=== PATIENT | male | born 1965 | race African-American/Black ===

== ENCOUNTER 2017-08-09 00:19 | Inpatient (IN) | payer OTHER ==
[~2017-08-09] VITALS: Ht 172.7 cm; Wt 115.7 kg
[2017-08-09 00:20] VITALS: BP 146/74
[2017-08-09] MEDS ORDERED: LISINOPRIL20 MG PO (00:25)
[2017-08-09] MEDS ORDERED: HYDROCHLOROTH12.5 M1 PO (00:25)
[2017-08-09] MEDS ORDERED: METFORMIN HCL500 MG PO (00:25)
[2017-08-09 01:14] LABS: CALCIUM 8.8 mg/dL (8.5-10.1); CREATININE 1.6 mg/dL (0.6-1.3); POTASSIUM 3.7 mmol/L (3.5-5.1)
[2017-08-09 01:18] LABS: ALBUMIN 2.4 g/dL (3.4-5.0); TOTAL BILIRUBIN 0.4 mg/dL (<0.1-1.0); TOTAL PROTEIN 7.2 g/dL (6.4-8.2)
[2017-08-09 01:28] LABS: ABSOLUTE BASOPHILS 0.1 thou/uL (0.0-0.2); ABSOLUTE EOSINOPHILS 0.3 thou/uL (0.0-0.7); ABSOLUTE LYMPHOCYTES 2.5 thou/uL (0.8-5.3); ABSOLUTE MONOCYTES 1.3 thou/uL (0.0-1.2); ABSOLUTE NEUTROPHILS 8.3 thou/uL (1.6-8.1); BASOPHILS 0.9 %; EOSINOPHILS 2.8 %; HEMATOCRIT 37.7 % (42.0-52.0); HEMOGLOBIN 13.1 gm/dL (14.0-18.0); LYMPHOCYTES 19.8 %; MCHC 34.6 g/dL (28.0-37.0); MCV 83.7 fL (80.0-100.0); MONOCYTES 10.3 %; MPV 9.2 fl. (7.2-11.1); NUCLEATED RBCS 0 /100WBC; PLATELET COUNT* 364 thou/uL (150-400); POLYS 66.2 %; RBC 4.51 mil/uL (4.50-6.00); RDW-CV 13.2 % (10.5-14.5); WBC 12.6 thou/uL (4.0-11.0)
[2017-08-09 01:41] VITALS: BP 144/90
--- NOTE | 2017-08-09 02:52 | NUR ---
PATIENT ARRIVE DON UNIT AT 0150. ALERT AND ORIENTED IMES FOUR. REFER TO FELLING BUCKING SUPERVISOR ASSESSMENT. VITAL SIGNS OBTAINED, HTN, NOTED HISTORY OF. PICTURE OOBAINED OF LEFT BUTTOCK, PLACED IN CART. ALL QUESTIONS ANSWERED. PATIENT VERBALIZED UNDERSTANDING O ADMISSIN AND TREATMENT PLAN. WILL CONTINUE TO MONITOR
[2017-08-09 08:15] VITALS: BP 107/76
--- NOTE | 2017-08-09 08:53 | NUR ---
Took pt into care at 0730. pt had morphine before shift change and was effective. Assessment completed. VSS. No c/o pain at this time. NPO at this time. Pt eager to have wound healed and to stop draining. Working with keeping pt dignity. Will continue with plan of care.
--- NOTE | 2017-08-09 10:12 | NUR ---
CM ASSESSMENT: Pt is A&O. Resides at home with his in [place]. 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 No DME. No hx of HH or SNF. Admitted for right buttock abcess. Following for dc needs.
[2017-08-09 12:00] VITALS: BP 129/69
--- NOTE | 2017-08-09 15:33 | NUR ---
ASSUMED CARE OF PATIENT AFTER TRANSFER FROM TELEMETRY AT APPROXIMATELY 1440. ALERT AND ORIENTED X4. AGREE WITH PREVIOUS NURSES ASSESSMENT. VSS ON ROOM AIR. PATIENT HAS NO COMPLAINTS OF PAIN AT THIS TIME. IV IN THE LEFT HAND HAD CLOTTED OFF SO A NEW LINE WAS STARTED IN THE LEFT FOREARM, FLUSING AND FLUIDS INFUSING ORDERED. PATIENT RESTING COMFORTABLY IN BED AT THIS TIME. CALL LIGHT IS WITHIN REACH. NURSING WILL CONTINUE TO MONITOR.
--- NOTE | 2017-08-09 18:00 | NUR ---
PATIENT REMAINS ALERT AND ORIENTED X4. VITALS REMAIN STABLE ON ROOM AIR. PATIENTS LEFT HAND IV INFILTRATED AND A NEW LINE WAS STARTED IN THE LEFT FOREARM, THIS IV ALSO INFILTRATED AND A NEW ACCESS WILL BE STARTED BEFORE SHIFT CHANGE. FLUIDS AND ANTIBIOTICS INFUSED ORDERED. PATIENTS PAIN HAS BEEN MANAGED WITH MEDICATION. HOURLY ROUNDS MAINTAINED. CALL LIGHT WITHIN REACH. NURSING WILL CONTINUE TO MONITOR.
[2017-08-09 20:45] VITALS: BP 109/67
--- NOTE | 2017-08-09 21:11 | NUR ---
RE: VANCOMYCIN DOSING. INFECTIOUS DISEASE PHYSICIAN ORDERING VANCOMYCIN. PHARMACY WILL DEFER & SIGN OFF VANCOMYCIN DOSING. THANK YOU.
[2017-08-10 02:07] LABS: GLYCOHEMOGLOBIN (HGB A1C) 11.6 % (4.8-5.6)
[2017-08-10 04:17] VITALS: BP 121/70
[2017-08-10 04:33] LABS: ABSOLUTE BASOPHILS 0.1 thou/uL (0.0-0.2); ABSOLUTE EOSINOPHILS 0.5 thou/uL (0.0-0.7); ABSOLUTE LYMPHOCYTES 3.3 thou/uL (0.8-5.3); ABSOLUTE MONOCYTES 0.8 thou/uL (0.0-1.2); ABSOLUTE NEUTROPHILS 5.7 thou/uL (1.6-8.1); BASOPHILS 1.2 %; EOSINOPHILS 4.4 %; LYMPHOCYTES 31.5 %; MCH 28.2 pg (26.0-34.0); MCHC 33.3 g/dL (28.0-37.0); MCV 84.9 fL (80.0-100.0); MPV 8.6 fl. (7.2-11.1); NUCLEATED RBCS 0 /100WBC; PLATELET COUNT* 363 thou/uL (150-400); POLYS 54.9 %; RBC 4.24 mil/uL (4.50-6.00); RDW-CV 13.2 % (10.5-14.5); WBC 10.4 thou/uL (4.0-11.0)
[2017-08-10 04:39] LABS: CALCIUM 7.9 mg/dL (8.5-10.1); CREATININE 1.2 mg/dL (0.6-1.3); POTASSIUM 4.5 mmol/L (3.5-5.1)
--- NOTE | 2017-08-10 07:43 | NUR ---
Alert and oriented x 4. He is up in the room independently. Left buttocks abscess is draining sersangunous drainage. Dressing was changed. He had pain meds x 2 this shift. He's had nothing by mouth since midnight in case he might have anything done today.
[2017-08-10 08:00] VITALS: BP 134/87
--- NOTE | 2017-08-10 16:18 | NUR ---
WOUND CARE NOTE: CONSULT RECEIVED TO ASSIST WITH EDUCATION OF WOUND CARE. PATIENT PRESENTS WITH AN ABSCESS TO THE LEFT GLUTEAL REGION, MIDLINE. THERE ARE ACTUALLY 2 OPENINGS. DISTAL GLUTEAL CLEFT: 2X1X0.2. MOIST, YELLOW WOUND BED. FULL THICKNESS. CLEANSED WITH WOUND CLEANSER AND APPLIED GAUZE OVER. LEFT GLUTEAL REGION, MIDLINE: 1.5X0.6X4. INDURATION NOTED TO JOHNNA-WOUND, NO HEAT NOTED. WOUND IS DRAINING MODERATE AMOUNTS OF SANGUINEOUS/PURULENT DRAINAGE. WOUND WAS CLEANSED WITH WOUND CLEANSER. APPLIED IODOFORM 1/4" RIBBON GAUZE. COVERED WITH 4X4 AND SECURED WITH TAPE. EDUCATED PATIENT ON IMPORTANCE OF NUTRITION FOR WOUND HEALING, COMMUNICATED UNDERSTANDING. EDUCATED ON KEEPING OFF AREA TO PROMOTE HEALING, COMMUNICATED UNDERSTANDING. EDUCATED ON PACKING WOUND TO KEEP IT OPEN AND DRAINING, COMMUNICATED UNDERSTANDING. EDUCATED ON KEEPING BLOOD SUGARS WELL CONTROLLED TO PROMOTE HEALING, COMMUNICATED UNDERSTANDING. EDUCATED ON NOT TAKING TUB BATHS/ GETTING INTO POOLS, COMMUNICATED UNDERSTANDING. EDUCATED ON WASHING HANDS PRIOR TO DRESSING CHANGES, COMMUNICATED UNDERSTANDING. RECOMMEND KEEP OFF WOUND-WAFFLE CUSHION TIGHT BLOOD GLUCOSE CONTROL ENCOURAGE GOOD NUTRITION AND HYDRATION FOR WOUND HEALING NURSING TO EDUCATE STAFF ON DRESSING CHANGES TO PROMOTE ABILITY TO PERFORM HIMSELF. PATIENT WILLING TO ATTEMPT TO CHANGE DRESSINGS. IT MAY BE DIFFICULT DUE TO LOCATION AND PAIN. PATIENT STATES HE 'WILL FIGURE SOMETHING OUT' REGARDING DRESSING CHANGES.
[2017-08-10 16:26] VITALS: BP 129/75
--- NOTE | 2017-08-10 16:37 | NUR ---
UNABLE TO SEE PT.THIS AFTERNOON. WOUND CARE NURSE IN ROOM. WILL SEE IN AM
--- NOTE | 2017-08-10 21:14 | NUR ---
I ASSUMED CARE OF THE PATIENT AT 0700. HE IS ALERT AND ORIENTED X4 AND IS PLEASANT. BED IS IN THE LOW LOCKED POSITION AND CALL LIGHT IS IN REACH. HOURLY ROUNDING WAS COMPLETED AND PATIENT NEEDS WERE MET. PAIN IS MANAGED BUT HIGH WITH PRN MEDS. FLUIDS ARE INFUSING. PROTEIN HAS BEEN ADDED TO THE DIET. HE IS UP AD HAYDEE AND STEADY ON HIS FEET. DIETARY VISITED AND DID EDUCATION. EDUCATION WAS ALSO GIVEN ABOUT A1C BEING 11. BRANT WITH WOUND CARE CHANGED HIS DRESSING AND DISCUSSED HIM DOING IT ON HIS OWN PRIOR TO D/C. HE MAY BENEFIT FROM A WAFFLE CUSHION PRIOR TO D/C. NEW ORDERS FOR MRSA SWAB WERE OBTAINED AND ISOLATION CART WAS REQUESTED. HE TOOK A SHOWER TODAY WITH ONLY SETUP ASSISTANCE. WILL CONTINUE TO MONITOR.
[2017-08-10 22:30] VITALS: BP 144/91
[2017-08-11 04:03] LABS: ABSOLUTE BASOPHILS 0.1 thou/uL (0.0-0.2); ABSOLUTE EOSINOPHILS 0.4 thou/uL (0.0-0.7); ABSOLUTE LYMPHOCYTES 3.2 thou/uL (0.8-5.3); ABSOLUTE MONOCYTES 0.8 thou/uL (0.0-1.2); BASOPHILS 1.2 %; EOSINOPHILS 3.9 %; HEMATOCRIT 34.5 % (42.0-52.0); HEMOGLOBIN 11.5 gm/dL (14.0-18.0); LYMPHOCYTES 27.4 %; MCH 28.3 pg (26.0-34.0); MCHC 33.4 g/dL (28.0-37.0); MCV 84.7 fL (80.0-100.0); MONOCYTES 6.8 %; MPV 8.5 fl. (7.2-11.1); NUCLEATED RBCS 0 /100WBC; PLATELET COUNT* 385 thou/uL (150-400); POLYS 60.7 %; RBC 4.08 mil/uL (4.50-6.00); RDW-CV 13.2 % (10.5-14.5); WBC 11.5 thou/uL (4.0-11.0)
[2017-08-11 04:27] LABS: CALCIUM 8.4 mg/dL (8.5-10.1); POTASSIUM 4.4 mmol/L (3.5-5.1)
--- NOTE | 2017-08-11 08:16 | NUR ---
ASSUMED CARE OF PATIENT AT 0015. I AGREE WITH PREVIOUS NURSE ASSESSMENT. DENIED THE NEED FOR PAIN MEDICATION DURING MY SHIFT. DENIES NAUSEA. SLEPT COMFORTABLY. FLUIDS INFUSING PER ORDER. LEFT BUTTOCK DRESSING IN PLACE. HOURLY ROUDNS. NURSING WILL CONTINUE TO MONITOR.
[2017-08-11 08:43] VITALS: BP 136/72
[2017-08-11 16:00] VITALS: BP 146/86
--- NOTE | 2017-08-11 16:58 | NUR ---
PATIENT REMAINS ALERT AND ORIENTED. PAIN CONTROLLED WITH PO MEDS. REMAINS IN ISOLATION (MRSA NARES PENDING) WOUND CULTURES PENDING. DRESSING AND PACKING CHANGED THIS MORNING. PATIENT AMBULATES AD HAYDEE. IVF AND IV ABX INFUSING ORDERED. TOLERATING MEALS. CALL LIGHT WITHIN REACH. WILL CONTINUE TO MONITOR.
[2017-08-12 00:07] VITALS: BP 171/94
[2017-08-12 06:00] VITALS: BP 158/95
--- NOTE | 2017-08-12 06:43 | NUR ---
PATIENT HAS REMAINED ALERT AND ORIENTED X 4 THROUGHOUT THE SHIFT AND RESTING QUIETLY ON HOURLY ROUNDS. EXTRA HS SNACKS PROVIDED FOR LOW BLOOD SUGAR. PRN HYDRALAZINE PROVIDED EARLY AM FOR BP 183/107. RECHECK AT 0600 DOWN TO 158/95 WITH PULSE 80. DRESSING LEFT BUTTOCKS PRESENT. MEDICATED FOR PAIN X 2 TO GOOD EFFECT. INFECTIOUS DISEASE ROUNDING EARLY AM WITH NEW ORDERS R/T CULTURES AND ANTIBIOTICS. PATIENT ALSO REMOVED FROM ISOLATION FOR NEGATIVE MRSA SCREEN. CONTINUE TO MONITOR.
[2017-08-12 16:00] VITALS: BP 149/94
--- NOTE | 2017-08-12 16:27 | NUR ---
PATIENT REMAINS ALERT AND ORIENTED. PAIN CONTROLLED WITH PO MEDS. IVF INFUSING ORDERED. IV ABX CHANGED TO CEFAZOLIN. PATIENT SHOWERED THIS AFTERNOON. PACKING/DRESSING CHANGED. AMBULATES AD HAYDEE. TOLERATING MEALS. CALL LIGHT WITHIN REACH. WILL CONTINUE TO MONITOR.
[2017-08-12 20:50] VITALS: BP 169/96
[2017-08-13 04:27] LABS: HEMATOCRIT 35.3 % (42.0-52.0); HEMOGLOBIN 11.9 gm/dL (14.0-18.0); MCH 28.4 pg (26.0-34.0); MCHC 33.7 g/dL (28.0-37.0); MCV 84.4 fL (80.0-100.0); MPV 8.4 fl. (7.2-11.1); RBC 4.18 mil/uL (4.50-6.00); RDW-CV 13.3 % (10.5-14.5); WBC 11.7 thou/uL (4.0-11.0)
--- NOTE | 2017-08-13 04:32 | NUR ---
PATIENT HAS REMAINED ALERT AND ORIENTED X 4 THROUGHOUT THE SHIFT AND RESTING QUIETLY ON HOURLY ROUNDS. UP INDEPENDENTLY IN THE ROOM. HAS DENIED NEED FOR PAIN MEDICATION ALTHOUGH LEFT BUTTOCKS WOUND TENDER. DRESSING INTACT. IVF'S AND ANTIBIOTICS PER ORDERS. 0200 CALLED TO ROOM AFTER PATIENT HAD LARGE AMOUNT EMESIS; PARTIALLY UNDIGESTED FOOD. HE STATES HE HAD FELT WITH EACH MEAL YESTERDAY THAT FOOD WAS JUST NOT MOVING. AT SUPPER HE MADE HIMSELF EAT REGARDLESS. HE WAS NOT ESPECIALLY NAUSEATED UNTIL RIGHT BEFORE EMESIS. DECLINED ANTI-EMETIC. CONTINUE TO MONITOR.
[2017-08-13 04:42] LABS: CALCIUM 8.6 mg/dL (8.5-10.1); CREATININE 0.9 mg/dL (0.6-1.3); POTASSIUM 5.5 mmol/L (3.5-5.1)
[2017-08-13 08:13] VITALS: BP 152/78
[2017-08-13 11:33] VITALS: BP 174/95
--- NOTE | 2017-08-13 14:21 | NUR ---
ABD XRAY THIS MORNING SHOWED CONSTIPATION. PATIENT DRINKING MIRILAX NOW. TOLERATED LUNCH. WILL CONTINUE TO MONITOR.
[2017-08-13 15:49] VITALS: BP 143/74
[2017-08-13 20:00] VITALS: BP 163/97
[2017-08-14 00:27] VITALS: BP 164/98
--- NOTE | 2017-08-14 04:20 | NUR ---
PATIENT HAS REMAINED ALERT AND ORIENTED X 4 THROUGHOUT THE SHIFT AND RESTING QUIETLY ON HOURLY ROUNDS. UP INDEPENDENTLY IN THE ROOM. DRESSING TO LEFT BUTTOCKS INTACT. PATIENT DENIES NAUSEA AND STATES HE IS PASSING GAS. NO BM. VITAL SIGNS STABLE. FLUIDS AND ANTIBIOTICS PER ORDERS. CONTINUE TO MONITOR.
[2017-08-14 08:30] VITALS: BP 169/100
--- NOTE | 2017-08-14 13:00 | NUR ---
SPOKE WITH PT. 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 HE PLANS ON DRIVING BACK TO [place] TOMORROW. HE SAID IT TAKES ABOUT 10 HRS TO GET THERE. EDUCATED HIM ON MAKING FREQUENT STOPS TO WALK AROUND,REST, NOT SITTING IN ONE POSITION FOR LONG LENGTHS OF TIME. 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 HE THINKS HE CAN GET A RIDE TO [place] . [facility] IS RIGHT THERE AND PLANS TO GET HIS ANTIBIOTIC THERE. CALLED [facility] TO CHECK ON HENDERSON OF DRUG. IT IS $65. INFORMED HIM. HE THINKS THAT WILL BE OK. GAVE HIM A DISCOUNT DRUG CARD THAT CAN BE USED AT [facility]. EXPLAINED TO HIM HE WILL NEED TO SEE A DR.IN FOLLOW UP IN 2 WEEKS.
[2017-08-14 13:48] VITALS: BP 169/100
[2017-08-14] MEDS ORDERED: DICLOXACILLIN250 M1 PO (14:06)
[2017-08-14 16:39] VITALS: BP 169/100
--- NOTE | 2017-08-14 16:40 | NUR ---
ASSUMED CARES OF PT AT 0700. PT IN BED, BED IN LOW LOCKED POSITION. PT A&O X4, UP INDEPENDENT, STURDY, STEADY GAIT. VSS ON RA, OCC HYPERTENSIVE. AFEBRILE, IV IN RIGHT HAND PATENT TO FLUIDS. IV ABT TOLERATED, NO AVR. PT HAD LARGE BM TODAY. LCTAB, HRRR, ABSCESS WOUND ON LEFT BUTTOCK DRESSING CHANGED AND PICTURES TAKEN TO PREPARE FOR DISCHARGE. 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 PT EDUCATED ON WOUND CARE WHILE CHANGING DRESSING. HOURLY ROUNDING AND ACCU CHECKS COMPLETED. IV REMOVED. PT BELONGINGS PACKED, ROOM CHECKED. DISCHARGE EDUCATION REVIEWED AND SIGNED. PRESCRIPTIONS AND DRUG EDUCATION REVIEWED AND SIGNED. PRESCRIPTIONS GIVEN TO PT TO TAKE TO PHARMACY. PT DISCHARGE COMPLETED SUCCESSFULLY AT 1622. PT ESCORTED AMBULATORY WITH FRIEND AND NURSING STAFF TO CAR. PT WAS STABLE, SMILING AND TALKATIVE AT DISCHARGE.
== END 2017-08-14 16:22 | disposition home or self-care (01) | DRG 603 ==
LOC: M.ERS 00:19 → M.ORTHSURG 01:04 → M.TBA-ER 01:04 → M.2W 01:44 → M.ORTHSURG 14:48
PROVIDERS: Emergency Medicine; Family Medicine; Internal Medicine; ADMIT Internal Medicine
DX: L02.31 Cutaneous abscess of buttock (principal); K59.00 Constipation, unspecified; R65.10 Systemic inflammatory response syndrome (SIRS) of non-infectious origin without acute organ dysfunction; E11.65 Type 2 diabetes mellitus with hyperglycemia; Z79.899 Other long term (current) drug therapy; Z90.49 Acquired absence of other specified parts of digestive tract